=== PATIENT | female | born 1960 | race Caucasian/White ===

== ENCOUNTER 2023-06-05 11:23 | Emergency (ER) | payer MEDICAID, SELFPAY ==
[2023-06-05 11:26] VITALS: BP 180/90; PULSE 88; RESP 18; TEMP 37; O2SAT 98
--- NOTE | 2023-06-05 11:45 | RT.EKG_ITS ---
APPROVED REPORT Exam: Resting ECG Reason for Exam: epigastric pain Patient Location: E HR:82 bpm ECG Measurements Heart Rate 82 AXIS MI 157 P 65 QRSd 91 QRS 68 QT 446 T 54 QTc 521 Conclusion Sinus rhythm...normal P axis, V-rate 60- 99 Prolonged QT interval...QTc >500mS
--- NOTE | 2023-06-05 12:00 | DI.CT_ITS ---
Exam(s) CT ABDOMEN PELVIS WO EXAM: CT ABDOMEN PELVIS WO CLINICAL HISTORY: RUQ pain/epigastric, vomiting bile. TECHNIQUE: Imaging Protocol: Axial computed tomography images with coronal and sagittal reformatted images were created and reviewed. COMPARISON: No exams were available for comparison FINDINGS: ABDOMEN: Lung Bases: There is a tiny right pleural effusion. Mild dependent atelectasis. There are calcified granuloma in the lung bases. Liver: Normal density. No measurable mass. Gallbladder and biliary tract: There is intra and extrahepatic biliary ductal dilatation. The common duct measures 9 mm in diameter. The material within the gallbladder is of slightly higher density t amaro normal and may represent sludge. No calcified stones are seen. Pancreas: No definite evidence of a pancreatic mass. Spleen: Normal. Kidneys: Normal size, contour and axis.No radiodense stones or obstructive uropathy. No masses seen. Adrenal glands: No mass is seen. Lymph nodes: Within normal limits. Abdominal Aorta: Abdominal portion non-dilated. Atherosclerosis. PELVIS: Bladder:Symmetric distention, no gross wall thickening. Bowel: No obstruction or bowel wall thickening. There is a moderate amount of stool in the colon. Th ere is no evidence of appendicitis. Peritoneal cavity: There is a small amount of free fluid in the pelvis. No free air. Reproductive organs: The uterus is not visualized. Bones: There is an old superior compression deformity of L2. Degenerative changes are seen in the sp ine. There is a left convex curvature of the lumbar spine. Soft Tissues: Within normal limits. IMPRESSION: 1. Intra and extrahepatic biliary ductal dilatation. Per ultrasound report report from outside [facility] dated 06/04/2023, the common duct was measured at 1 cm. MRI/MRCP should be considered in this [facility] ient for further evaluation. 2. Findings were discussed with Yaritza Ansari at 3:03 p.m. on 06/05/2023. RADIATION DOSE DELIVERED: 503.33mGy.cm Total DLP DATA REPOSITORY: All CT scans at this facility are submitted to the National Radiology Data Registry (NRDR) Dose Index Registry (DIR) with the [employer] (ACR). RADIATION OPTIMIZATION: All CT scans at this facility use at least one of these dose optimization te chniques: automated exposure control; mA and/or kV adjustment per patient size (includes targeted exa ms where dose is matched to clinical indication); or iterative reconstruction.
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
[2023-06-05 12:12] LABS: Abs Immature Grans 0.01 10^3/uL (0.0-0.06); Absolute Basophil Count 0.01 10^3/uL (0.0-0.2); Absolute Lymphocyte Count 0.69 10^3/uL (1.2-3.4); Absolute Monocyte Count 0.25 10^3/uL (0.1-0.8); Absolute Neutrophil Count 4.19 10^3/uL (1.2-6.7); Basophils % 0.2; HCT 37.5 % (36.0-46.0); HGB 13.2 g/dL (11.2-15.7); Immature Grans % 0.2; Lymphocytes % 13.4; MCH 29.8 pg (27.0-33.0); MCHC 35.2 % (32.0-36.0); MCV 85 fL (80-95); MPV 8.8 fL (8.0-11.0); Monocytes % 4.9; Neutrophils % 81.3; Platelet Count 201 10^3/uL (130-400); RBC 4.43 10^6/uL (3.93-5.22); RDW 12.3 % (11.7-14.6); RDW-SD 38.1 fL; WBC 5.15 10^3/uL (4.4-10.8)
[2023-06-05] MEDS: Lactated Ringers 1,000 ML 1000 ML IV (12:21)
[2023-06-05] MEDS: MORPHine 4 MG/ML SYR IVP ×2 (12:21→15:20)
[2023-06-05] MEDS: FAMOTIDINE 20 MG in Normal Saline 100 ML 400 MG IVPB (12:21)
[2023-06-05] MEDS: diphenhydrAMINE 50 MG/ML VIAL 25 MG IVP (12:21)
[2023-06-05 12:29] LABS: ALT 20 U/L (14-59); AST 34 U/L (15-37); Albumin 4.6 g/dL (3.4-5.0); Alkaline Phosphatase 68 U/L (46-116); BUN 19 mg/dL (7-18); Bilirubin, Total 0.9 mg/dL (0.2-1.0); CREATININE 0.9 mg/dL (0.55-1.02); Calcium 9.6 mg/dL (8.5-10.1); Chloride 101 mmol/L (98-107); Estimated GFR 72.28 (mL/min/1.73m2); Glucose 105 mg/dL (74-106); Lipase 31 U/L (16-77); Magnesium 1.5 mg/dL (1.8-2.4); Potassium 3.9 mmol/L (3.5-5.1); Sodium 139 mmol/L (136-145); Total Protein 7.8 g/dL (6.4-8.2); Troponin I < 50 ng/L (<or=60)
[2023-06-05] MEDS: MAGNESIUM SULFATE 1 GM/100 ML BAG IVPB (13:00)
[2023-06-05 13:33] VITALS: PULSE 84; RESP 21; O2SAT 95
[2023-06-05 13:40] VITALS: PULSE 82; RESP 25; O2SAT 96
[2023-06-05] MEDS: Ketorolac 15 MG/ML VIAL IVP (13:43)
[2023-06-05] MEDS: Acetaminophen 500 MG TAB 1000 MG PO (13:43)
[2023-06-05 13:57] LABS: *AMPHETAMINES SCREEN URINE Negative (Negative); *BARBITURATES SCREEN URINE Negative (Negative); *BENZODIAZEPINES SCREEN URINE Negative (Negative); Cannabinoids THC Positive (Negative); Cocaine Screen,Urine Negative (Negative); METHADONE URINE SCREEN Negative (Negative); OPIATES URINE SCREEN Positive (Negative)
[2023-06-05 13:59] LABS: Tricyclic Antidepressants Negative (Negative)
--- NOTE | 2023-06-05 16:42 | W.PM.PROGNOT ---
Date of Service Date of service: 06/05/23 Time of Service: 16:43 Assessment and Plan Assessment and plan (1) Abdominal pain: Status: Acute Assessment and plan: I was asked by the ER for a evaluation for direction of care. I reviewed her labs and radiological scans. I did not see the patient. The patient was in [facility] yesterday complaining of abdominal pain. She had normal labs, CT scan and ultrasound. I Was able [place] [facility] They should be scanned into [facility]. Patient has been seen at [facility] for multiple visits, including as recently as 06/04/23. She has had multiple CT scans that showed dilatation of the intra and extrahepatic bile ducts. Ultrasound from [facility] which was read as no change in longstanding chronic bile duct dilation. There was no signs of acute cholecystitis or cholelithiasis on her ultrasound from [facility] on 06/04/2023. She had no white count/elevated bilirubin or lipase [place] [facility] [place]. On the ultrasound at [facility] on 06/04/2023, measured her common bile duct at 1 cm. Her bilirubin at [facility] was normal Patient notes shows no signs of chronic pancreatitis from her CT scans at [facility] or [facility]. She does not have a history of EtOH abuse. She does have a history of opioid abuse and is currently on Suboxone therapy. There is a Large volume of stool on her CT scan today. All her labs and CT scan are normal from [facility] 06/05/23. From reviewing her labs and outside Images as well as a CT scan at [facility] today, I think her intra and extrahepatic dilatation is longstanding in nature. A MRCP could be done to completely rule out the problem. The patient's had longstanding dilation of her bile ducts for several years without any interval change and no change in her lab work, so ordering an MRCP would be high cost/low yield test. -Patient should do MiraLAX and suppositories for the constipation. She will for chronic bowel plan for the constipation caused by the Suboxone: MiraLAX 1-2 times a day and avoid suppositories and stimulant laxatives. (2) Dilated intrahepatic bile duct: Status: Acute (3) Bipolar 2 disorder: (4) GERD (gastroesophageal reflux disease): (5) History of renal failure: (6) Hypertension: (7) Opioid dependence: (8) Rhabdomyolysis: (9) Drug induced constipation: Status: Acute Objective Last Vital Signs Temp 37.0 C 06/05/23 11:26 Pulse 88 06/05/23 11:26 Resp 25 H 06/05/23 13:40 BP 180/90 H 06/05/23 11:26 Pulse Ox 96 06/05/23 13:40 Laboratory Results - last 24 hr 06/05/23 06/05/23 06/05/23 12:03 12:03 13:28 WBC 5.15 RBC 4.43 Hgb 13.2 Hct 37.5 MCV 85 MCH 29.8 MCHC 35.2 RDW 12.3 Plt Count 201 MPV 8.8 Immature Gran % 0.2 Neutrophils % 81.3 Lymphocytes % 13.4 Monocytes % 4.9 Eosinophils % 0.0 Basophils % 0.2 Nucleated RBC % 0.0 Absolute Neutrophils 4.19 Absolute Lymphocytes 0.69 L Absolute Monocytes 0.25 Absolute Eosinophils 0.00 Absolute Basophils 0.01 Sodium 139 Potassium 3.9 Chloride 101 Carbon Dioxide 26.0 Anion Gap 12.0 H BUN 19 H Creatinine 0.9 Est GFR (CKD-EPI 2020) 72.28 Glucose 105 Calcium 9.6 Magnesium 1.5 L Total Bilirubin 0.9 AST 34 ALT 20 Alkaline Phosphatase 68 Troponin I < 50 Total Protein 7.8 Albumin 4.6 Lipase 31 Urine Opiates Screen Positive A Urine Methadone Screen Negative Ur Barbiturates Screen Negative Ur Tricyclics Screen Negative Ur Amphetamines Screen Negative U Benzodiazepines Scrn Negative Urine Cocaine Screen Negative Ur THC Screen Positive A Time Spent with Patient Time Spent with Patient: 25-34 minutes Time was spent: preparing to see the patient(eg.review tests), obtaining and/or reviewing separately otained hiistory, ordering medications,tests, procedures, referring, communicating with other health healthcare management, indepentently interpreting results, counseling the patient and care coordination
== END 2023-06-05 16:16 | disposition home or self-care (01) ==
PROVIDERS: Emergency Provider Physician Assistant; PCP Family Medicine
DX: R10.13 Epigastric pain; R11.10 Vomiting, unspecified; R94.31 Abnormal electrocardiogram [ECG] [EKG]; I10 Essential (primary) hypertension
CPT/HCPCS: 80053; 80307; 83690; 93005; 96361; 96365; 96367; 96375; 99284; 74176; 83605; 83735; 84484; 85025; 93010; 99283; J1200; J1885; J2270; J3475

== ENCOUNTER 2025-05-14 00:44 | Outpatient (CLI) | payer MEDICAID, SELFPAY ==
--- NOTE | 2025-05-14 | DI.CTLCSR_ITS ---
Exam(s) CT CHEST LUNG CANCER SCREEN EXAM: CT CHEST LUNG CANCER SCREEN CLINICAL HISTORY: h/o tobacco abuse, Z87.891; screening TECHNIQUE: Imaging Protocol: Axial computed tomography images with coronal and sagittal reformatted images were created and reviewed. Lung Computer Aided Detection (CAD) was utilized. COMPARISON: CT CT ABDOMEN PELVIS WO from 06/05/2023 FINDINGS: Tracheobronchial tree: Patent where visualized. No bronchiectasis. Pulmonary parenchyma: No consolidation or dominant measurable mass. Calcified granuloma are present. Emphysematous changes are present in the lungs. There is a small infiltrate in the left upper lobe which may represent atelectasis, scarring or pneumonia. Lung Nodules: There is a 4 mm nodule in the left lower lobe (series 5, image 98). Mediastinum and Sondra: No dominant adenopathy or fluid collection. The esophagus is unremarkable. Thyroid gland: Unremarkable. Lymph nodes: Unremarkable. Pleura: No effusion or pneumothorax. Heart: The heart is not dilated. No coronary artery calcifications are seen. No pericardial effusion. Aorta: Thoracic aorta non-dilated.Mild atherosclerotic calcification is present. Upper abdomen: There is stable dilatation of the extrahepatic common bile duct. Soft Tissues: Unremarkable. Bones: Within normal limits. There is an old healed sternal fracture. There is an old healed L2 superior endplate compression deformity. No acute osseous abnormalities identified. IMPRESSION: 1. Four mm left lower lobe pulmonary nodule. 2. Multiple calcified pulmonary granuloma. 3. Nonspecific infiltrate in the left upper lobe which may represent atelectasis scarring or pneumonia. Please correlate clinically. Lung RADS Cat 3 - Probably Benign: Probably benign finding(s) - short term follow-up suggested; include nodules with a low likelihood of becoming a clinically active cancer. Lung-RADS 1.0 CATEGORIES: Category 0 - Prior chest CT exam(s) being located for comparison. Category 1 - Annual screening in 12 months. No nodules or definitely benign nodules. Category 2 - Annual screening in 12 months. Benign appearance. Nodules with low likelihood of becoming active cancer. Category 3 - 6-month follow-up. Probably benign. Short-term follow-up suggested. Nodules with low likelihood of becoming active cancer. Category 4A - 3-month follow-up and CT/PET if >8 mm in size. Suspicious finding. Findings which require additional testing. Category 4B - Findings which require additional testing and tissue sampling. Suspicious finding. Category 4X - Category 3 or 4 nodules with additional features or imaging findings that increases the suspicion of malignancy. Modifier S- Potentially clinically significant finding. (Non lung cancer) RADIATION DOSE DELIVERED: 23.66mGy.cm Total DLP 23.66mGy.cmTotal DLP DATA REPOSITORY: All CT scans at this facility are submitted to the National Radiology Data Registry (NRDR) Dose Index Registry (DIR) with the [employer] (ACR). RADIATION OPTIMIZATION: All CT scans at this facility use at least one of these dose optimization techniques: automated exposure control; mA and/or kV adjustment per patient size (includes targeted exams where dose is matched to clinical indication); or iterative reconstruction.
== END 2025-05-14 01:04 ==
LOC: DI 00:48
PROVIDERS: PCP Family Medicine; Visit Provider Family Medicine
DX: Z12.2 Encounter for screening for malignant neoplasm of respiratory organs (principal); Z87.891 Personal history of nicotine dependence; R91.8 Other nonspecific abnormal finding of lung field
CPT/HCPCS: 71271